=== PATIENT | female | born 1980 | race Two or more races ===

== ENCOUNTER 2017-10-03 01:27 | Observation (INO) | payer MEDICAID | END 2017-10-03 02:10 | disposition home or self-care (01) | LOC: FLD 01:27 | PROVIDERS: ADMIT Advanced Practice Midwife; ATTEND Advanced Practice Midwife | DX: O09.513 Supervision of elderly primigravida, third trimester (principal); Z3A.39 39 weeks gestation of pregnancy ==

== ENCOUNTER → 2018-02-20 | Outpatient (CLI) | payer MEDICAID | LOC: CIMAGING 15:10 | PROVIDERS: ATTEND Family Medicine | DX: R59.0 Localized enlarged lymph nodes (principal) | CPT/HCPCS: 76536-PO ==

== ENCOUNTER → 2018-03-11 | Outpatient (CLI) | payer MEDICAID ==
[~2018-03-11] MED LIST: IOPAMIDOL (ISOVUE-300) 100 ML BTL ONE
== END ==
LOC: CIMAGING 14:41
PROVIDERS: ATTEND Family Medicine
DX: J32.0 Chronic maxillary sinusitis (principal); R59.0 Localized enlarged lymph nodes
CPT/HCPCS: 70491-PO; Q9967

== ENCOUNTER → 2018-08-19 | Outpatient (CLI) | payer MEDICAID | LOC: CIMAGING 08:27 | PROVIDERS: ATTEND Family Medicine | DX: K82.4 Cholesterolosis of gallbladder (principal); R20.2 Paresthesia of skin; L65.9 Nonscarring hair loss, unspecified | CPT/HCPCS: 76705-PO ==

== ENCOUNTER → 2018-09-18 | Outpatient (CLI) | payer MEDICAID | LOC: CIMAGING 09:30 ==